=== PATIENT | male | born 1985 | race Caucasian/White ===

== ENCOUNTER 2025-02-16 19:12 | Emergency (ER) | payer OTHER, SELFPAY ==
[2025-02-16 19:13] VITALS: BP 140/100; PULSE 78; RESP 19; TEMP 36.6; O2SAT 98; BMI 29.7
[2025-02-16 23:29] VITALS: PULSE 81; RESP 18; O2SAT 96
--- NOTE | 2025-02-16 23:29 | EDS_ITS ---
HPI History of Present Illness Chief Complaint: Laceration [facility] Medical History no medical history Home Medications ?Medication ?Instructions ?Recorded ?Last Taken ?Type cephalexin 500 mg capsule 500 mg PO TID 7 days #21 cap s 02/16/25 Unknown Rx Allergy/AdvReac Type Severity Reaction Status Date / Time No Known Allergies Allergy Verified 02/16/25 23:31 Social History Smoking Status: Never smoker EXAM Physical Exam Const Vital Signs: 02/16/25 19:13 02/16/25 23:29 Temperature 97.8 F Temperature Source Temporal Pulse Rate 78 81 Respiratory Rate 19 H 18 Blood Pressure 140/100 H Blood Pressure Mean 113 Pulse Ox 98 96 Oxygen Delivery Method Room Air [place] [facility] Medical decision making narrative: HISTORY OF PRESENT ILLNESS: Chief complaint: Laceration 39-year-old male presents with laceration to the left second and third digits. Notes this occurred just prior to arrival. Unknown tetanus. REVIEW OF SYSTEMS: Pertinent positives: Laceration Pertinent negatives: Numbness PHYSICAL EXAM: Nursing triage notes reviewed, Vital signs reviewed Constitutional: please see mdm Extremities: No edema, intact tendinous structures of left upper extremity including flexor digitorum superficialis and profundus. Neuro: Intact 5/5 strength with ok sign (median), intact finger abduction (ulnar) intact wrist extension (radial n). Intact sensation in the radial, ulnar, and median nerve distributions. Skin: Lacerations as below MEDICAL DECISION MAKING: Chief Complaint: please see HPI [facility] Narrative: The patient was initially hemodynamically stable, afebrile and nontoxic- appearing. Exam The patient suffered lacerations to the left second and third digits On exam there was no evidence of foreign bodies. There was no evidence of neurovascular injury. Patient had a normal distal vascular exam, and had intact ROM and sensation. There was also no evidence of tendon injury, with normal distal full range of motion, flexion, extension, abduction, abduction. There is no evidence of local joint space involvement at this time. Wound care applied (irrigation and/or local cleansing solution). Laceration repair was then performed please see procedure note. The patient was given signs and symptoms warnings for infection, such as increasing pain, redness, swelling, associated heat, pus or fever. Patient was given instructions for timely follow-up for removal. Given prescription for Keflex for antimicrobial prophylaxis given the patient had a stalled wound and works with his hands. Patient agreed with the plan of care Procedure: Laceration repair. The procedure was performed by myself. Indication: Wound repair Risks and benefits: risks, benefits and alternatives were discussed Consent: Consent was obtained. Wound Details: Second digit: Linear laceration to the distal tip of the second digit, no obvious tendinous involvement, no foreign bodies, Third digit: There is a very superficial linear skin defect above the distal interphalangeal joint, and superficial, is not gaping is well-approximated no need for invasive repair. No obvious tendinous involvement. Anesthesia: Topical let, digital block (verbal consent obtained from patient). Wound prep: Patient was prepped and draped in the usual sterile fashion. Tetanus: updated today Irrigation Solution: Saline Wound Preparation: Cleaned with chlorhexidine, soaked in chlorhexidine bath. The wound was explored to its base in a bloodless field. Procedure Description: 5 5-0 Chromic Gut sutures to second digit wound. 30 do not require repair as it was superficial. Patient tolerated the procedure well with no immediate complications The patient and/or family, caregivers express understanding. The patient and/or family, caregivers agrees with the plan. Shared decision making: I will have a discussion with the patient and or visitors regarding risk/benefits of further testing or admission. They will be made aware of of the risk/benefits inherent in this decision they will be given the opportunity to voice understanding. Total critical care time today provided was at least 0 minutes. This excludes separately billable procedures. Critical care time (if documented) is secondary to the patient having high probability of clinically significant/life threatening deterioration in the patient's condition which required my urgent intervention. Impression: 1. Finger laceration Dispo: Discharge home This note was generated with [employer] dictation software. It may contain incorrect words, spelling, and punctuation that were not noted in review of the chart prior to signing. Discharge Plan Triage Chief Complaint: Laceration ED Provider: Edgardo Barajas Dx/Rx/DC Orders Instructions: ED Laceration Extremity Prescriptions: New cephalexin 500 mg capsule 500 mg PO TID 7 Days Qty: 21 0RF Primary Care Provider: Yessy Dickerson Referrals: Chris Blanco MD [Med Staff - Active Staff] - Activity Restrictions/Additional Instructions: Thank you for trusting us with your care today! Please keep your wound clean and dry. Please use peroxide and Neosporin daily. Please take antibiotics as prescribed until course complete. Please take Tylenol (2 pills, 650 mg), ibuprofen (2 pills, 400 mg) every 6 hours as needed for pain and fever control. Please return to the emergency department if your symptoms change or worsen. Please follow with your primary care physician for further outpatient evaluation and management. Print Language: Serbian Disposition Disposition: Home, Self Care Discharge Date/Time: 02/17/25 00:33
[2025-02-16] MEDS: Lidocaine/Epi/Tetracaine 50 ML 1 APPLIC TOPICAL (23:58)
[2025-02-16] MEDS: Lidocaine 1% (20 ml mdv) 20 ML Vial 5 ML INFILT (23:59)
[2025-02-17] MEDS: Diphth,Pertuss(Acell),Tet Vac 0.5 ML Vial IM (00:08)
== END 2025-02-17 00:33 | disposition home or self-care (01) ==
PROVIDERS: Emergency Provider Emergency Medicine; PCP Physician Assistant; Visit Provider Emergency Medicine
DX: S61.211A Laceration without foreign body of left index finger without damage to nail, initial encounter (principal); S61.213A Laceration without foreign body of left middle finger without damage to nail, initial encounter; X58.XXXA Exposure to other specified factors, initial encounter; Z23 Encounter for immunization
CPT/HCPCS: 12001; 90715; 99282